=== PATIENT | male | born 1960 ===

== ENCOUNTER 2018-10-04 07:12 | Emergency (ER) | payer OTHER ==
[2018-10-04 07:26] VITALS: BP 145/87; PULSE 69; RESP 16; TEMP 99.7; O2SAT 99
--- NOTE | 2018-10-04 08:00 | C.PDOC ---
History Of Present Illness 58 y/o male presents to the ER complaining of subjective fever and generalized body aches which have been present for the past 3 days. Patient states that he did not take any medications for the symptoms. Patient is requesting work note. Denies having cough, sore throat, nausea, vomiting, abdominal pain, dysuria, and hematuria. 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 Time Seen by Provider: 10/04/18 07:39 Chief Complaint (Nursing): Flu-like Symptoms History Per: Medical Clerk History/Exam Limitations: no limitations Current Symptoms Are (Timing): Still Present Severity: Moderate Past Medical History Reviewed: Historical Data, Nursing Documentation, Vital Signs Vital Signs: Last Vital Signs Temp 99.7 F H 10/04/18 07:23 Pulse 69 10/04/18 07:23 Resp 16 10/04/18 07:23 BP 145/87 10/04/18 07:23 Pulse Ox 99 10/04/18 07:23 - Medical History PMH: No Chronic Diseases Surgical History: No Surg Hx Family History: States: No Known Family Hx - Social History Hx Alcohol Use: No Hx Substance Use: No - Immunization History Hx Tetanus Toxoid Vaccination: No Hx Influenza Vaccination: No Hx Pneumococcal Vaccination: No Review Of Systems Except As Marked, All Systems Reviewed And Found Negative. Constitutional: Positive for: Fever (subjective fever), Malaise. Negative for: Chills Respiratory: Negative for: Cough Gastrointestinal: Negative for: Nausea, Vomiting, Abdominal Pain Genitourinary: Negative for: Dysuria, Hematuria Physical Exam - Physical Exam Appears: Non-toxic, No Acute Distress Skin: Normal Color, Warm, Dry Head: Atraumatic, Normacephalic Eye(s): bilateral: Normal Inspection Ear(s): Bilateral: Normal Nose: Normal Oral Mucosa: Moist Throat: Normal, No Erythema, No Exudate Cardiovascular: Rhythm Regular Respiratory: Normal Breath Sounds, No Rales, No Rhonchi, No Wheezing Neurological/Psych: Oriented x3, Normal Speech ED Course And Treatment O2 Sat by Pulse Oximetry: 99 (RA) Pulse Ox Interpretation: Normal Medical Decision Making Medical Decision Making: Patient has been informed that he is out of the theraptuc window for Tamiflu. Patient is requesting work note. Patient has been discharged with work note and instructed to follow up in [facility]. Disposition Counseled Patient/Family Regarding: Diagnosis, Need For Followup, Rx Given - Disposition Referrals: [facility] [Outside] [facility] [Outside] Disposition: HOME/ ROUTINE Disposition Time: 07:57 Condition: GOOD Instructions: Influenza (ED) Forms: [facility] (Chadian), Work Excuse Print Language: SALVADOREAN - Clinical Impression Clinical Impression: Influenza-like illness - Scribe Statement The provider has reviewed the documentation as recorded by the Savannahibrubén Ferrer Provider Attestation: All medical record entries made by the Awais were at my direction and personally dictated by me. I have reviewed the chart and agree that the record accurately reflects my personal performance of the history, physical exam, medical decision making, and the department course for this patient. I have also personally directed, reviewed, and agree with the discharge instructions and disposition.
== END 2018-10-04 08:21 | disposition home or self-care (01) ==
LOC: C.ER 07:12
DX: J11.1 Influenza due to unidentified influenza virus with other respiratory manifestations (principal)